=== PATIENT | female | born 1995 | race American Indian/Alaskan Native ===

== ENCOUNTER 2016-05-06 17:19 | Outpatient (CLI) | payer MEDICAID ==
[2016-05-06] MEDS ORDERED: LACTATED RINGERS 1,000 ML IV ONE (17:39)
[2016-05-06 17:58] VITALS: BP 130/86
[2016-05-06 20:03] LABS: Bacteria,Urine 1+ /HPF (Negative); Bilirubin,Urine NEG (Negative); Blood,Urine NEG (Negative); Ketones,Urine 20 mg/dL (Negative); Leukocyte Esterase,Urine SM (Negative); Mucus,Urine FEW /HPF; Nitrite,Urine NEG (Negative); Protein,Urine <15 mg/dL mg/dL (Negative); Urobilinogen,Urine < 2.0 mg/dL (<2.0)
--- NOTE | 2016-05-07 09:42 | Ultrasound Report ---
OB ULTRASOUND: ULTRASOUND OB TRANSVAGINAL: TECHNIQUE: Transabdominal ultrasound with Doppler interrogation. Gestation: nam Position: cephalic Amniotic Fluid: WNL (7-24 cm) DOMINIK = 19.8 cm Placenta: anterior, Rt. lateral Placental Grade: I Heart Rate: 151 BPM Cervical length: 3.0 cm (Normal > 3 cm) NEUROANATOMY VISUALIZED: Choroid Plexus Cisterna Magnum Cerebellum Lateral Ventricle ANATOMY VISUALIZED: Stomach Kidneys Bladder Diaphragm 4 Chamber Heart Heart 3 Vessel Cord Abd. Cord Insert SPINE VISUALIZED: Longitudinal Transverse Limited spine due to position BPD: 5.6 cm = 23 w 0 d HC: 20.9 cm = 23 w 0 d AC: 18.9 cm = 23 w 4 d FL: 4.2 cm = 23 w 4 d HC/AC Ratio: 1.11 Cephalic Index: 76.5 Estimated Weight: 603 grams Clinical age = 24 w 0 d EDC: 08-26-16 US Gest. Age = 23 w 2 d EDC: 08-31-16 COMMENT: There is a moderate amount of fluid in the vaginal canal of uncertain significance.
== END 2016-05-06 22:28 | disposition home or self-care (01) ==
LOC: TRG 17:19
PROVIDERS: ATTEND Obstetrics & Gynecology
DX: O47.02 False labor before 37 completed weeks of gestation, second trimester (principal); Z3A.24 24 weeks gestation of pregnancy
CPT/HCPCS: 76805; 76817; 81001; 87210; 96360; J7120

== ENCOUNTER 2017-09-18 19:15 | Emergency (ER) | payer MEDICAID ==
[2017-09-18] MEDS ORDERED: NACL 0.9% 1000 ML 1,000 ML IV ONE (19:30)
[2017-09-18] MEDS ORDERED: KEPPRA 1,000 MG/NS 0.75% 100ML 0 MG/0 ML BAG IV ONE (19:34)
[2017-09-18 19:57] LABS: Basophils # (Auto) 0.1 K/mm3 (0.0-0.1); Eosinophils # (Auto) 0.2 K/mm3 (0.0-0.4); Eosinophils % (Auto) 2.9 % (0.0-4.3); Hematocrit 40.1 % (30.3-42.9); Hemoglobin 12.8 gm/dl (10.1-14.3); Lymphocytes # (Auto) 2.8 K/mm3 (1.2-5.4); Lymphocytes % (Auto) 39.5 % (13.4-35.0); Mean Corpuscular HGB Conc 32 % (30-34); Mean Corpuscular Volume 77 fl (79-97); Monocytes # (Auto) 0.4 K/mm3 (0.0-0.8); Monocytes % (Auto) 5.9 % (0.0-7.3); Platelet Count 237 K/mm3 (140-440); Red Blood Count 5.18 M/mm3 (3.65-5.03); Red Cell Distribution Width 13.7 % (13.2-15.2)
[2017-09-18 20:00] LABS: Mean Corpuscular Hemoglobin 25 pg (28-32)
[2017-09-18 20:12] LABS: Alanine Aminotransferase 15 units/L (7-56); Albumin 3.8 g/dL (3.9-5); BUN/Creatinine Ratio 20; Blood Urea Nitrogen 10 mg/dL (7-17); Calcium 8.9 mg/dL (8.4-10.2); Hemolysis Index 15
[2017-09-18 21:15] LABS: Bilirubin,Urine NEG (Negative); Blood,Urine NEG (Negative); Color,Urine Yellow (Yellow); HCG Qualitative,Urine Negative (Negative); Protein,Urine <15 mg/dL mg/dL (Negative); Urobilinogen,Urine < 2.0 mg/dL (<2.0); WBC,Urine < 1.0 /HPF (0.0-6.0)
[2017-09-18] MEDS ORDERED: LIDOCAINE VISCOUS 2% PO ONE (21:52)
[2017-09-18] MEDS ORDERED: ALUM-MAG HYDROX-SIMETH 200-200-20MG/5ML PO ONE (21:52)
--- NOTE | 2017-09-18 22:48 | XRay Report ---
FINAL REPORT EXAM: XR ABDOMEN 1V AP HISTORY: abd pain TECHNIQUE: Supine abdomen PRIORS: None. FINDINGS: Moderate amount of stool and gas present within the colon. No evidence of colonic or small bowel dilatation. No signs of free air. No abnormal calcifications are identified. Surgical clips are present in the right upper quadrant of the abdomen. IMPRESSION: Nonobstructive bowel gas pattern. No acute abnormality seen.
[2017-09-18 22:56] VITALS: BP 113/75
--- NOTE | 2017-09-18 23:09 | Emergency Department Report ---
ED Abdominal Pain HPI - General Chief Complaint: Abdominal Pain Stated Complaint: STOMACH PAIN Time Seen by Provider: 09/18/17 21:28 Source: patient Mode of arrival: Ambulatory Limitations: No Limitations - History of Present Illness Initial Comments: The past couple months, patient has been having intermittent migratory abdominal pain. Crampy/tight in nature. She does have a history of constipation and has to use MiraLAX as Dulcolax to have a bowel movement. Patient went to [facility] earlier this week for this issue was set up with a pelvic ultrasound. Patient said that the pain is so bad that she cannot wait to get the ultrasound done. Last menstrual period was a month ago. She is currently on a control patch. History of cholecystectomy. She is sexually active, but denies significant vaginal discharge or odors. -: Gradual - Related Data Home Medications Medication Instructions Recorded Confirmed Last Taken Ondansetron [Ondansetron Odt] 1 tab PO Q8HR PRN 05/06/16 05/06/16 05/04/16 09:00 1 Pnv No.95/Ferrous Fum/Folic AC 1 tab PO DAILY 05/06/16 05/06/16 05/06/16 09:00 [ Vitamins Tablet] 1 Promethazine HCl [Promethazine TAB] 12.5 mg PO [id number] PRN 05/06/16 05/06/1602/07 09:00 1 Allergies Allergy/AdvReac Type Severity Reaction Status Date / Time No Known Allergies Allergy Verified 05/06/16 17:31 ED Review of Systems ROS: Stated complaint: STOMACH PAIN Other details as noted in HPI Comment: All other systems reviewed and negative Gastrointestinal: abdominal pain, nausea ED Past Medical Hx - Past Medical History Hx Hypertension: No Hx Diabetes: No Hx Deep Vein Thrombosis: No Hx Renal Disease: No Hx Sickle Cell Disease: No Hx Seizures: No Hx Asthma: No Hx COPD: No Hx HIV: No - Surgical History Past Surgical History?: No - Social History Smoking Status: Never Smoker Substance Use Type: None - Medications Home Medications: Home Medications Medication Instructions Recorded Confirmed Last Taken Type Ondansetron [Ondansetron Odt] 1 tab PO Q8HR PRN 05/06/16 05/06/16 05/04/16 09: 00 History 1 Pnv No.95/Ferrous Fum/Folic AC 1 tab PO DAILY 05/06/16 05/06/16 05/06/16 09:00 History [ Vitamins Tablet] 1 Promethazine HCl [Promethazine TAB] 12.5 mg PO [id number] PRN 05/06/16 05/06/1602/07 09:00 History 1 ED Physical Exam - General Limitations: No Limitations General appearance: alert, in no apparent distress - Head Head exam: Present: atraumatic, normocephalic - Eye Eye exam: Present: normal appearance - ENT ENT exam: Present: mucous membranes moist - Neck Neck exam: Present: normal inspection - Respiratory Respiratory exam: Present: normal lung sounds bilaterally. Absent: respiratory distress - Cardiovascular Cardiovascular Exam: Present: regular rate, normal rhythm. Absent: systolic murmur, diastolic murmur, rubs, gallop - GI/Abdominal GI/Abdominal exam: Present: soft, tenderness (generalized, no cva tenderness), normal bowel sounds - Extremities Exam Extremities exam: Present: normal inspection - Back Exam Back exam: Present: normal inspection - Neurological Exam Neurological exam: Present: alert, oriented X3 - Psychiatric Psychiatric exam: Present: normal affect, normal mood - Skin Skin exam: Present: warm, dry, intact, normal color. Absent: rash ED Course Vital Signs 09/18/17 09/18/17 09/18/17 19:24 21:00 21:06 Temperature 98.4 F 98.1 F Pulse Rate 71 63 Respiratory 16 18 Rate Blood Pressure 119/79 118/82 Blood Pressure 126/77 [Left] O2 Sat by Pulse 99 100 100 Oximetry 09/18/17 22:00 Temperature Pulse Rate Respiratory Rate Blood Pressure 113/75 Blood Pressure [Left] O2 Sat by Pulse 100 Oximetry ED Medical Decision Making - Lab Data Result diagrams: 09/18/17 19:39 09/18/17 19:39 - Radiology Data Radiology results: report reviewed, image reviewed - Medical Decision Making 22-year-old female past medical history of constipation, cholecystectomy and appendectomy presents to the ER for abdominal pain. Signs are stable. Patient well-appearing. Lab work and urinalysis unremarkable. Abdominal x-ray shows moderate stool pattern. Patient was given a GI cocktail which improved some of her symptoms. By the patient is suffering from gastritis versus constipation. She'll be started on Pepcid and given a new regimen of MiraLAX as Dulcolax to take at home. Patient will follow-up with the [facility] for reevaluation if symptoms aren't improved. Cleared for discharge. - Differential Diagnosis constipation, gastritis, GERD, nephritis, UTI, Critical care attestation.: If time is entered above; I have spent that time in minutes in the direct care of this critically ill patient, excluding procedure time. ED Disposition Clinical Impression: Abdominal pain Disposition: DC- TO HOME OR SELFCARE Is pt being admited?: No Condition: Stable Instructions: Gastritis (ED), Diet for Ulcers and Gastritis (ED), High Fiber Diet (ED) Additional Instructions: Please start taking a daily 20 mg pepcid for the next 7 days. Use a dulcolax suppository daily for the next 3 days. Take 5 packets/scoops of miralax in 40 oz of water on day 1. Then drink 1 packet/scoop daily for 2 weeks. All of these medications can be purchased over the counter. Follow up [facility] for re-evaluation in 1 week. Referrals: GREGORIA ROSALES MD [Primary Care Provider] - 3-5 Days
== END 2017-09-18 23:40 | disposition home or self-care (01) ==
LOC: ED 19:15
DX: R10.84 Generalized abdominal pain (principal)
CPT/HCPCS: 36415; 74018; 80053; 81001; 81025; 85025; J1953

== ENCOUNTER 2017-09-22 19:27 | Emergency (ER) | payer MEDICAID ==
[2017-09-22 20:12] LABS: Basophils # (Auto) 0.1 K/mm3 (0.0-0.1); Basophils % (Auto) 0.8 % (0.0-1.8); Eosinophils # (Auto) 0.2 K/mm3 (0.0-0.4); Eosinophils % (Auto) 2.5 % (0.0-4.3); Hematocrit 41.5 % (30.3-42.9); Lymphocytes # (Auto) 3.5 K/mm3 (1.2-5.4); Lymphocytes % (Auto) 50.9 % (13.4-35.0); Mean Corpuscular HGB Conc 31 % (30-34); Mean Corpuscular Volume 78 fl (79-97); Monocytes # (Auto) 0.3 K/mm3 (0.0-0.8); Monocytes % (Auto) 4.7 % (0.0-7.3); Platelet Count 243 K/mm3 (140-440); Red Blood Count 5.36 M/mm3 (3.65-5.03); Red Cell Distribution Width 13.7 % (13.2-15.2)
[2017-09-22 20:19] LABS: Mean Corpuscular Hemoglobin 24 pg (28-32)
[2017-09-22 20:27] LABS: BUN/Creatinine Ratio 15; Blood Urea Nitrogen 9 mg/dL (7-17); Calcium 9.9 mg/dL (8.4-10.2); Hemolysis Index 5
[2017-09-22 21:21] LABS: Bilirubin,Urine NEG (Negative); Blood,Urine NEG (Negative); Color,Urine Yellow (Yellow); Protein,Urine <15 mg/dL mg/dL (Negative); Urobilinogen,Urine < 2.0 mg/dL (<2.0)
[2017-09-22 21:31] LABS: HCG Qualitative,Urine Negative (Negative); WBC,Urine < 1.0 /HPF (0.0-6.0)
[2017-09-23 00:24] VITALS: BP 138/101
[2017-09-23] MEDS ORDERED: ALUM-MAG HYDROX-SIMETH 200-200-20MG/5ML PO ONE (01:12)
[2017-09-23] MEDS ORDERED: PEPCID PO ONE (01:12)
[2017-09-23] MEDS ORDERED: LIDOCAINE VISCOUS 2% PO ONE ×2 (01:12→04:54)
--- NOTE | 2017-09-23 01:18 | Emergency Department Report ---
HPI - General Chief Complaint: Chest Pain Time Seen by Provider: 09/23/17 01:05 - HPI HPI: Room 3 The patient is a 22-year-old female presenting with a chief complaint of burning chest pain. Patient states for the past 4 days she has had burning from her throat to the midepigastric region. The patient states she has noticed increasing eructation. The patient states she has tried Gas-X and Gaviscon which helps temporarily but symptoms returned. The patient states Tums does not help. The patient admits to nausea but denies vomiting. Patient also describes tightness and shortness of breath with her symptoms at times. Patient currently gives her pain a score of 10/10. Patient denies any other forms of pain Location: [See above] Duration: Intermittent 4 days Quality: Burning Severity: 10/10 Modifying factors: [see above] Context: [see above] Mode of transportation: [not driving] ED Past Medical Hx - Past Medical History Hx Diabetes: Yes (gestational) - Surgical History Hx Cholecystectomy: Yes - Family History Family history: no significant - Social History Smoking Status: Never Smoker Substance Use Type: None (denies illicit drug use) - Medications Home Medications: Home Medications Medication Instructions Recorded Confirmed Last Taken Type Ondansetron [Ondansetron Odt] 1 tab PO Q8HR PRN 05/06/16 05/06/16 05/04/16 09: 00 History 1 Pnv No.95/Ferrous Fum/Folic AC 1 tab PO DAILY 05/06/16 05/06/16 05/06/16 09:00 History [ Vitamins Tablet] 1 Promethazine HCl [Promethazine TAB] 12.5 mg PO [id number] PRN 05/06/16 05/06/1602/07 09:00 History 1 Famotidine [Pepcid] 20 mg PO BID #30 tablet 09/23/17 Unknown Rx ED Review of Systems ROS: Stated complaint: CHEST PAIN,ABDOMINAL PAIN Other details as noted in HPI Constitutional: no symptoms reported Eyes: denies: eye pain ENT: throat pain Respiratory: shortness of breath Cardiovascular: chest pain Gastrointestinal: abdominal pain, nausea. denies: vomiting Genitourinary: denies: dysuria Musculoskeletal: denies: back pain Neurological: denies: headache Physical Exam - Physical Exam Vital Signs: Vital Signs 09/22/17 09/22/17 09/23/17 19:28 19:43 00:14 Temperature 98.2 F 98.5 F Pulse Rate 73 68 66 Respiratory 16 18 21 Rate Blood Pressure 119/85 119/85 O2 Sat by Pulse 100 100 Oximetry 09/23/17 09/23/17 00:16 00:24 Temperature Pulse Rate 67 Respiratory 14 14 Rate Blood Pressure 138/101 O2 Sat by Pulse 100 100 Oximetry Physical Exam: GENERAL: The patient is well-developed well-nourished female sitting on stretcher not appearing to be in acute distress. [] HEENT: Normocephalic. Atraumatic. Extraocular motions are intact. Patient has moist mucous membranes. NECK: Supple. Trachea midline CHEST/LUNGS: Clear to auscultation. There is no respiratory distress noted. HEART/CARDIOVASCULAR: Regular. There is no tachycardia. There is no gallop rub or murmur. ABDOMEN: Abdomen is soft, nontender. Patient has normal bowel sounds. There is no abdominal distention. SKIN: There is no rash. There is no edema. There is no diaphoresis. NEURO: The patient is awake, alert, and oriented. The patient is cooperative. The patient has normal speech MUSCULOSKELETAL: There is no evidence of acute injury. ED Course Vital Signs 09/22/17 09/22/17 09/23/17 19:28 19:43 00:14 Temperature 98.2 F 98.5 F Pulse Rate 73 68 66 Respiratory 16 18 21 Rate Blood Pressure 119/85 119/85 O2 Sat by Pulse 100 100 Oximetry 09/23/17 09/23/17 00:16 00:24 Temperature Pulse Rate 67 Respiratory 14 14 Rate Blood Pressure 138/101 O2 Sat by Pulse 100 100 Oximetry - Reevaluation(s) Reevaluation #1: 09/23/17 01:44 Patient states she feels improved after GI cocktail ED Medical Decision Making - Lab Data Result diagrams: 09/22/17 19:56 09/22/17 19:56 Laboratory Tests 09/22/17 09/22/17 09/22/17 19:56 19:56 20:52 WBC 6.8 RBC 5.36 H Hgb 13.0 Hct 41.5 MCV 78 L MCH 24 L MCHC 31 RDW 13.7 Plt Count 243 Lymph % (Auto) 50.9 H Stephenson % (Auto) 4.7 Eos % (Auto) 2.5 Baso % (Auto) 0.8 Lymph # 3.5 Stephenson # 0.3 Eos # 0.2 Baso # 0.1 Seg Neutrophils % 41.1 Seg Neutrophils # 2.8 D-Dimer Sodium 138 Potassium 3.8 Chloride 99.2 Carbon Dioxide 24 Anion Gap 19 BUN 9 Creatinine 0.6 L Estimated GFR > 60 BUN/Creatinine Ratio 15 Glucose 86 Calcium 9.9 Troponin T < 0.010 Urine Color Yellow Urine Turbidity Clear Urine pH 7.0 Ur Specific Med[place] 1.008 Urine Protein <15 mg/dl Urine Glucose (UA) Neg Urine Ketones Neg Urine Blood Neg Urine Nitrite Neg Urine Bilirubin Neg Urine Urobilinogen < 2.0 Ur Leukocyte Esterase Neg Urine WBC (Auto) < 1.0 Urine RBC (Auto) 1.0 Urine HCG, Qual Negative 09/22/17 09/23/17 09/23/17 22:57 01:29 01:29 WBC RBC Hgb Hct MCV MCH MCHC RDW Plt Count Lymph % (Auto) Stephenson % (Auto) Eos % (Auto) Baso % (Auto) Lymph # Stephenson # Eos # Baso # Seg Neutrophils % Seg Neutrophils # D-Dimer 263.22 H Sodium Potassium Chloride Carbon Dioxide Anion Gap BUN Creatinine Estimated GFR BUN/Creatinine Ratio Glucose Calcium Troponin T < 0.010 < 0.010 Urine Color Urine Turbidity Urine pH Ur Specific Medina Urine Protein Urine Glucose (UA) Urine Ketones Urine Blood Urine Nitrite Urine Bilirubin Urine Urobilinogen Ur Leukocyte Esterase Urine WBC (Auto) Urine RBC (Auto) Urine HCG, Qual - EKG Data -: EKG Interpreted by Mo EKG shows normal: sinus rhythm Rate: normal - EKG Data When compared to previous EKG there are: changes noted Interpretation: nonspecific ST-T wave rivera (new T-wave inversion in lead V2 when compared to previous EKG dated 05/26/2015) - Radiology Data Radiology results: report reviewed (CT chest), image reviewed (CT chest) CT chest (read by radiologist) -no PE, dissection or acute process - Differential Diagnosis GERD, PE, ACS, pericarditis Critical care attestation.: If time is entered above; I have spent that time in minutes in the direct care of this critically ill patient, excluding procedure time. ED Disposition Clinical Impression: GERD (gastroesophageal reflux disease) Disposition: - TO HOME OR SELFCARE Is pt being admited?: No Does the pt Need Aspirin: No Condition: Stable Instructions: Gastroesophageal Reflux Disease (ED) Additional Instructions: Return to the emergency department immediately should you develop worsening symptoms, fever, inability to tolerate food or liquid or any other concerns. 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 Please follow-up with him for further evaluation) Time of Disposition: 04:56
--- NOTE | 2017-09-23 04:45 | Cat Scan Report ---
FINAL REPORT EXAM: CT ANGIO CHEST HISTORY: chest pain TECHNIQUE: A CT angiogram was performed following the intravenous injection of 100 cc of Omnipaque 350. Rotational, sagittal, and coronal MIP reconstructions were reviewed. FINDINGS: There is no evidence of pulmonary embolus or aortic dissection. The thoracic aorta is normal in caliber. The heart size is normal. Pericardial fluid is not seen. There is no evidence of adenopathy. The lungs are clear. Pleural fluid is not seen. At the thoracic inlet the thyroid gland appears normal. In the upper abdomen the adrenal glands appear normal. The skeletal structures are well-maintained. IMPRESSION: No evidence of pulmonary embolus, aortic dissection, or vascular congestion. No acute process in the chest
== END 2017-09-23 05:01 | disposition home or self-care (01) ==
LOC: ED 19:27
DX: K21.9 Gastro-esophageal reflux disease without esophagitis (principal)
CPT/HCPCS: 36415; 71275; 80048; 81001; 81025; 84484; 85025; 85379; 93005; 93010; 99284; Q9967

== ENCOUNTER 2017-10-25 11:02 | Emergency (ER) | payer MEDICAID ==
[2017-10-25 11:11] VITALS: BP 125/82
--- NOTE | 2017-10-25 11:47 | Emergency Department Report ---
ED Abdominal Pain HPI - General Chief Complaint: Abdominal Pain Stated Complaint: ABDOMINAL PAIN Time Seen by Provider: 10/25/17 11:35 Source: patient Mode of arrival: Ambulatory Limitations: No Limitations - History of Present Illness Initial Comments: Is a 22-year-old female who is complaining of continued epigastric pain. Patient says of burning sensation. Patient has been dealing with this discomfort for approximately 2 months. Patient has been to our hospital as well as well*A gradient. Patient had endoscopy yesterday and was told that there was no ulcers present. Biopsy was taken. Patient is on omeprazole but states this is not helping with the burning sensation. Patient on chart review did have a CTA of the chest ruled out PE or aortic dissection. Also on this scan the upper abdominal structures such as liver and gallbladder appeared normal. Patient is stating that she has 10 out of 10 pain in the epigastrium. Patient denies any vomiting fever or diarrhea this time. - Related Data Home Medications Medication Instructions Recorded Confirmed Last Taken Ondansetron [Ondansetron Odt] 1 tab PO Q8HR PRN 05/06/16 05/06/16 05/04/16 09:00 1 Pnv No.95/Ferrous Fum/Folic AC 1 tab PO DAILY 05/06/16 05/06/16 05/06/16 09:00 [ Vitamins Tablet] 1 Promethazine HCl [Promethazine TAB] 12.5 mg PO [id number] PRN 05/06/16 05/06/1602/07 09:00 1 Previous Rx's Medication Instructions Recorded Last Taken Type Famotidine [Pepcid] 20 mg PO BID #30 tablet 09/23/17 Unknown Rx Dexlansoprazole [Dexilant] 30 mg PO QDAY #30 10/25/17 Unknown Rx Dicyclomine [Bentyl] 20 mg PO QID #20 tablet 10/25/17 Unknown Rx traMADol [Ultram] 50 mg PO Q6HR PRN #10 tablet 10/25/17 Unknown Rx Allergies Allergy/AdvReac Type Severity Reaction Status Date / Time No Known Allergies Allergy Verified 09/22/17 19:43 ED Review of Systems ROS: Stated complaint: ABDOMINAL PAIN Other details as noted in HPI Comment: All other systems reviewed and negative ED Past Medical Hx - Past Medical History Hx Hypertension: No Hx Diabetes: No Hx Deep Vein Thrombosis: No Hx Renal Disease: No Hx Sickle Cell Disease: No Hx Seizures: No Hx Asthma: No Hx COPD: No Hx HIV: No - Surgical History Hx Cholecystectomy: Yes - Social History Smoking Status: Never Smoker Substance Use Type: None - Medications Home Medications: Home Medications Medication Instructions Recorded Confirmed Last Taken Type Ondansetron [Ondansetron Odt] 1 tab PO Q8HR PRN 05/06/16 05/06/16 05/04/16 09: 00 History 1 Pnv No.95/Ferrous Fum/Folic AC 1 tab PO DAILY 05/06/16 05/06/16 05/06/16 09:00 History [ Vitamins Tablet] 1 Promethazine HCl [Promethazine TAB] 12.5 mg PO [id number] PRN 05/06/16 05/06/1602/07 09:00 History 1 Famotidine [Pepcid] 20 mg PO BID #30 tablet 09/23/17 Unknown Rx Dexlansoprazole [Dexilant] 30 mg PO QDAY #30 10/25/17 Unknown Rx Dicyclomine [Bentyl] 20 mg PO QID #20 tablet 10/25/17 Unknown Rx traMADol [Ultram] 50 mg PO Q6HR PRN #10 tablet 10/25/17 Unknown Rx ED Physical Exam - General Limitations: No Limitations General appearance: alert, in distress - Head Head exam: Present: atraumatic, normocephalic - Eye Eye exam: Present: normal appearance - ENT ENT exam: Present: mucous membranes moist - Neck Neck exam: Present: normal inspection - Respiratory Respiratory exam: Present: normal lung sounds bilaterally. Absent: respiratory distress, wheezes, rales, rhonchi - Cardiovascular Cardiovascular Exam: Present: regular rate, normal rhythm. Absent: systolic murmur, diastolic murmur, rubs, gallop - GI/Abdominal GI/Abdominal exam: Present: soft, normal bowel sounds. Absent: distended, tenderness, guarding, rebound - Extremities Exam Extremities exam: Present: normal inspection - Back Exam Back exam: Present: normal inspection - Neurological Exam Neurological exam: Present: alert, oriented X3 - Psychiatric Psychiatric exam: Present: normal affect, normal mood - Skin Skin exam: Present: warm, dry, intact, normal color. 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 Critical care attestation.: If time is entered above; I have spent that time in minutes in the direct care of this critically ill patient, excluding procedure time. ED Disposition Clinical Impression: GERD (gastroesophageal reflux disease) Disposition: - TO HOME OR SELFCARE Is pt being admited?: No Does the pt Need Aspirin: No Condition: Stable Instructions: Gastroesophageal Reflux Disease (ED) Prescriptions: Dexlansoprazole [Dexilant] 30 mg PO QDAY #30 Dicyclomine [Bentyl] 20 mg PO QID #20 tablet traMADol [Ultram] 50 mg PO Q6HR PRN #10 tablet PRN Reason: Pain Referrals: PRIMARY CARE, [Primary Care Provider] - 3-5 Days
== END 2017-10-25 12:01 | disposition home or self-care (01) ==
LOC: ED 11:02
DX: K21.9 Gastro-esophageal reflux disease without esophagitis (principal); Z90.49 Acquired absence of other specified parts of digestive tract
CPT/HCPCS: 99282

== ENCOUNTER 2018-01-13 11:03 | Outpatient (CLI) | payer MEDICAID ==
--- NOTE | 2018-01-13 12:09 | Magnetic Resonance Report ---
MRI BRAIN WITHOUT CONTRAST: 01/13/18 11:03:00 CLINICAL: Multiple sclerosis. TECHNIQUE: Axial diffusion, T1, T2, gradient echo T2*, coronal and axial FLAIR and sagittal T1 sequences on a 1.5 Naye magnet. FINDINGS: Normal ventricles and sulci. No restricted diffusion. No abnormal signal on T1, T2 or FLAIR. Benign calcifications of the falx. No mass or mass effect. No hemorrhage, edema or extra-axial collection. Normal pituitary and optic chiasm. The brainstem and cerebellum are normal. Intact vascular flow voids. Mild left ethmoid sinusitis in otherwise normal sinuses. The orbits, and soft tissues are normal. Normal calvarium and skull base. IMPRESSION: Normal study except for mild ethmoid sinusitis
== END 2018-01-13 11:04 | disposition home or self-care (01) ==
LOC: MRI 11:03
PROVIDERS: ATTEND Psychiatry & Neurology Neurology
DX: J32.2 Chronic ethmoidal sinusitis (principal); Z90.49 Acquired absence of other specified parts of digestive tract
CPT/HCPCS: 70551